=== PATIENT | female | born 1945 | race African-American/Black ===

== ENCOUNTER 2017-08-19 14:03 | Emergency (ER) | payer OTHER, MEDICAID ==
[2017-08-19 14:56] LABS: ADD MAN DIFF? NO
[2017-08-19 15:00] LABS: BASO # 0.1 x10^3/uL (0.0-0.2); BASO % 1 % (0-3); EOS # 0.1 x10^3/uL (0.0-0.7); EOS % 2 % (0-3); HEMATOCRIT 32.8 % (36.0-47.0); HEMOGLOBIN 11.2 g/dL (12.0-15.5); LYMPH # 3.9 x10^3/uL (1.0-4.8); LYMPH % 49 % (24-48); MEAN CORPUSCULAR HEMOGLOBIN 33 pg (25-35); MEAN CORPUSCULAR HGB CONC 34 g/dL (31-37); MEAN CORPUSCULAR VOLUME 96 fL (79-100); MONO % 12 % (0-9); NEUT # 2.8 x10^3uL (1.8-7.7); NEUT % 36 % (31-73); PLATELET COUNT 228 x10^3/uL (140-400); RED BLOOD COUNT 3.41 x10^6/uL (3.50-5.40); RED CELL DISTRIBUTION WIDTH 14.1 % (11.5-14.5); WHITE BLOOD COUNT 7.9 x10^3/uL (4.0-11.0)
[2017-08-19] MEDS: ACETAMINOPHEN/CODEINE 300/30MG TABLET. PO (15:10)
[2017-08-19 15:14] LABS: ANION GAP 7 (6-14); BLOOD UREA NITROGEN 21 mg/dL (7-20); BUN/CREATININE RATIO 16 (6-20); CALCIUM 9.4 mg/dL (8.5-10.1); CARBON DIOXIDE 27 mmol/L (21-32); CHLORIDE 105 mmol/L (98-107); CREATININE 1.3 mg/dL (0.6-1.0); GFR 48.6; GLUCOSE 117 mg/dL (70-99); POTASSIUM 4.1 mmol/L (3.5-5.1); SODIUM 139 mmol/L (136-145)
[2017-08-19 15:20] LABS: ALBUMIN 3.4 g/dL (3.4-5.0); ALK PHOS 51 U/L (46-116); ALT (SGPT) 25 U/L (14-59); AST (SGOT) 20 U/L (15-37); TOTAL BILIRUBIN 0.3 mg/dL (0.2-1.0); TOTAL PROTEIN 6.7 g/dL (6.4-8.2)
[2017-08-19 15:24] LABS: TROPONINI < 0.017 ng/mL (0.000-0.055)
[2017-08-19] MEDS: LABETALOL 20 MG/4 ML DISP.SYRIN. IVP (15:38)
== END 2017-08-19 17:29 | disposition home or self-care (01) ==
LOC: ER 17:29
DX: R07.81 Pleurodynia (principal); I10 Essential (primary) hypertension; E11.9 Type 2 diabetes mellitus without complications
CPT/HCPCS: 36415; 71100; 80053; 84484; 85025; 93005; 96374; 99285-25; J3490

== ENCOUNTER 2021-07-08 15:22 | Emergency (ER) | payer MEDICAID, OTHER ==
[~2021-07-08] VITALS: Ht 160 cm; Wt 69.0 kg
[~2021-07-08 15:22] MED LIST: ACET-58 PO; ACET-704 PO; ASPI-482 PO; CALC600T PO; DASA100T PO; FERR325T14 PO; GLIP5TAB10 PO; HYDR-2145 PO; INSU100I17 SQ; INSU100V31 SQ; INSU100V8 SQ; LOSA100T14 PO; LOVA20TA2 PO; METF10007 PO; MULT-658 PO; PSYL575P4 PO; VERA180C2 PO; vit b complex PO
--- NOTE | 2021-07-08 15:57 | PHYS DOC ---
Past Medical History Past Medical History: Anemia, Cancer, Diabetes-Type II, Hypertension Additional Past Medical Histor: CML, leagally blind bilat Past Surgical History: Hysterectomy, Other Additional Past Surgical Histo: cataracts bilat Smoking Status: Never Smoker Alcohol Use: None Drug Use: None General Adult EDM: Chief Complaint: HIP PAIN HPI: HPI: Patient is a 76-year-old female who presents today with left hip left lower back pain. Patient states that the pain has been ongoing for the last 2 weeks but it continues to worsen, she says it is worse when she is ambulating but she is ambulate able to ambulate with a cane which is not new for her. Patient does have a past medical history of hypertension, CML for which she is seen at the [facility] oncology department for, and legally blind. Patient denies falling or any other trauma to that area, she has not been told that she has arthritis in her back or hip at any point in time. Review of Systems: Review of Systems: Constitutional: Denies fever or chills. [] Eyes: Denies change in visual acuity. [] HENT: Denies nasal congestion or sore throat. [] Respiratory: Denies cough or shortness of breath. [] Cardiovascular: Denies chest pain or edema. [] GI: Denies abdominal pain, nausea, vomiting, bloody stools or diarrhea. [] : Denies dysuria. [] Musculoskeletal: Left hip back pain Integument: Denies rash. [] Neurologic: Denies headache, focal weakness or sensory changes. [] Endocrine: Denies polyuria or polydipsia. [] Lymphatic: Denies swollen glands. [] Psychiatric: Denies depression or anxiety. [] Heart Score: C/O Chest Pain: No Risk Factors: Risk Factors: DM, Current or recent (<one month) smoker, HTN, HLP, family history of CAD, obesity. Risk Scores: Score 0 - 3: 2.5% MACE over next 6 weeks - Discharge Home Score 4 - 6: 20.3% MACE over next 6 weeks - Admit for Clinical Observation Score 7 - 10: 72.7% MACE over next 6 weeks - Early Invasive Strategies Allergies: Allergies: Allergies Coded Allergies Type Severity Reaction Last Updated Verified No Known Drug Allergies 08/03/13 No Physical Exam: PE: Constitutional: Well developed, well nourished, no acute distress, non-toxic appearance. [] HENT: Normocephalic, atraumatic, bilateral external ears normal, oropharynx moist, no oral exudates, nose normal. [] Eyes: PERRLA, EOMI, conjunctiva normal, no discharge. [] Neck: Normal range of motion, no tenderness, supple, no stridor. [] Cardiovascular:Heart rate regular rhythm, no murmur [] Lungs & Thorax: Bilateral breath sounds clear to auscultation [] Abdomen: Bowel sounds normal, soft, no tenderness, no masses, no pulsatile masses. [] Skin: Warm, dry, no erythema, no rash. [] Back: Tenderness located over the SI joint and the left side of her back, no lacerations, abrasions, contusions, or ecchymosis noted Extremities: Left leg normal range of motion with pain with movement, no deformity noted, peripheral pulses are 1+. Neurologic: Alert and oriented X 3, normal motor function, normal sensory function, no focal deficits noted. [] Psychologic: Affect normal, judgement normal, mood normal. [] Current Patient Data: Labs: Laboratory Tests Test 07/08/21 16:25 07/08/21 16:32 Urine Collection Type Void Urine Color (Auto) Light yellow Urine Turbidity Hazy Urine pH (Auto) 6.0 Urine Specific Addison 1.016 Urine Protein (Auto) Negative mg/dL Urine Glucose (Auto)(UA) 500 mg/dL Urine Ketones (Auto) Negative mg/dL Urine Blood (Auto) Trace Urine Nitrite Negative Urine Bilirubin (Auto) Negative Urine Urobilinogen (Auto) Normal mg/dL Urine Leukocyte Esterase (Auto) Small Urine RBC 1-2 /HPF Urine WBC 1-4 /HPF Urine Squamous Epithelial Cells Few /LPF Urine Amorphous Sediment Present /HPF Urine Bacteria Moderate /HPF White Blood Count 7.4 x10^3/uL Red Blood Count 3.66 x10^6/uL Hemoglobin 11.6 g/dL Hematocrit 34.2 % Mean Corpuscular Volume 94 fL Mean Corpuscular Hemoglobin 32 pg Mean Corpuscular Hemoglobin Concent 34 g/dL Red Cell Distribution Width 13.6 % Platelet Count 205 x10^3/uL Neutrophils (%) (Auto) 58 % Lymphocytes (%) (Auto) 22 % Monocytes (%) (Auto) 16 % Eosinophils (%) (Auto) 3 % Basophils (%) (Auto) 1 % Neutrophils # (Auto) 4.3 x10^3/uL Lymphocytes # (Auto) 1.6 x10^3/uL Monocytes # (Auto) 1.2 x10^3/uL Eosinophils # (Auto) 0.2 x10^3/uL Basophils # (Auto) 0.1 x10^3/uL Sodium Level 135 mmol/L Potassium Level 3.9 mmol/L Chloride Level 100 mmol/L Carbon Dioxide Level 24 mmol/L Anion Gap 11 Blood Urea Nitrogen 22 mg/dL Creatinine 1.1 mg/dL Estimated GFR (Cockcroft-Gault) 58.3 Glucose Level 150 mg/dL Calcium Level 9.4 mg/dL Vital Signs: Vital Signs Date Time Temp Pulse Resp B/P (MAP) Pulse Ox O2 Delivery O2 Flow Rate FiO2 07/08/21 15:25 98.2 85 18 189/85 (119) 100 Room Air 98.2 EKG: EKG: [] Radiology/Procedures: Radiology/Procedures: [REASON: back hip pain PROCEDURE: CT LUMBAR SPINE WO CONTRAST EXAMINATION: CT PELVIS WO, CT LUMBAR SPINE WO, 07/08/2021 3:51 PM CLINICAL INDICATION: Back and hip pain COMPARISON: None TECHNIQUE: Helical CT imaging performed of the lumbar spine and CT of the pelvis without the use of intravenous contrast. Sagittal and coronal reformats were obtained. One or more of the following individualized dose reduction techniques were utilized for this examination: 1. Automated exposure control 2. Adjustment of the mA and/or kV according to patient size 3. Use of iterative reconstruction technique. FINDINGS: CT lumbar spine: There are 5 nonrib-bearing lumbar vertebral bodies. No acute fracture. There is 8 mm anterolisthesis of L4 on L5. 3 mm anterolisthesis of L5 on S1. There is moderate disc space narrowing at L5-S1. Mild disc space narrowing at L4-L5. The remaining disc spaces are maintained. At L4-L5: Anterolisthesis uncovers a large broad-based disc bulge. This combined with severe facet arthrosis and ligamentum flavum thickening results in severe canal narrowing. There is moderate to severe bilateral foraminal narrowing at L4-L5. At L5-S1, there is a broad-based disc bulge and posterior endplate pr oliferation. This results in moderate right greater than left foraminal narrowing. No significant canal narrowing. No significant canal or foraminal narrowing at the remaining levels. There is a nodular and linear opacity in the posterior right lower lobe, likely atelectasis (image 4, series 2). Mild calcified aortoiliac atherosclerosis. Small hiatal hernia. CT pelvis: There is no acute fracture. Alignment is normal. There is mild bilateral hip joint space narrowing. Small corticated ossicle at the tip of the right greater trochanter, likely sequela of old injury. Muscles and subcutaneous soft tissue is normal in appearance. Lower lumbar degenerative disc disease, as above. There is a small ventral hernia or mild diastases recti. Mild calcified aortoiliac atherosclerosis. IMPRESSION: 1. No acute osseous abnormality in the lumbar spine or pelvis. 2. Grade 1 spondylolisthesis at L4-L5 uncovering a disc bulge and resulting in severe canal and moderate to severe bilateral foraminal narrowing. 3. Moderate right greater than left foraminal narrowing at L5-S1. 4. Mild degenerative joint disease of the hips. Electronically signed by: Bing Rico MD (07/08/2021 4:28 PM) [id number] ] Course & Med Decision Making: Course & Med Decision Making Pertinent Labs and Imaging studies reviewed. (See chart for details) 1750 I reviewed radiological and laboratory results with patient, I did inform her there was no acute findings on her CT scan but it did show that she had some bulging disc at L4 S1 and some narrowing of the spinal cord area, she will need to follow-up with her primary care physician to have further evaluation and management of her back pain including an MRI with a possible consultation to neurosurgery or pain management physician for an epidural steroid injection. Patient will be given a prescription for Ultram for pain, patient can also take [id number] Tylenol as needed as well. Patient is agreeable with the plan of care and will follow up with her primary care physician KANA. Viraj Disclaimer: Viraj Disclaimer: This electronic medical record was generated, in whole or in part, using a voice recognition dictation system. Departure Departure Impression: Primary Impression: Back pain Qualified Codes: M54.50 - Low back pain, unspecified Additional Impressions: Left hip pain Urinary tract infection Qualified Codes: N30.00 - Acute cystitis without hematuria Disposition: HOME / SELF CARE / HOMELESS Condition: STABLE Referrals: JASWANT CARR MD (PCP) Patient Instructions: Back Pain, Adult, Urinary Tract Infection Additional Instructions: You will need to follow-up with your primary care physician for further evaluation and management of your low back pain, he will need to order an MRI fo r further evaluation of your spinal cord area, may suggest a referral to neurosurgery or a pain management physician for epidural steroid injections. Ultram take 1 tablet every 6-8 hours as needed for severe pain, use with caution may cause drowsiness and constipation You may continue to take Tylenol [id number] as labeled directed for pain as well [id number] Lidoderm patches as labeled directed for localized pain relief Macrobid take 1 tablet twice daily for 7 full days for urinary tract infection Return to the emergency department should you develop a fever, inability to use your left leg, numbness or tingling in your left leg, or you have loss of bowel or bladder control Scripts Nitrofurantoin Monohyd/M-Cryst (MACROBID 100 MG CAPSULE) 100 Mg Capsule 1 CAP PO BID for 7 Days, #14 CAP 0 Refills Prov: YUKI GUTIERREZ APRN 07/08/21 Tramadol Hcl (ULTRAM) 50 Mg Tablet 1 TAB PO PRN Q6HRS PRN for pain MDD 4 Tablet(s) for 7 Days, #28 TAB 0 Refills Prov: YUKI GUTIERREZ APRN 07/08/21 YUKI GUTIERREZ APRN Jul 08, 2021 15:57
--- NOTE | 2021-07-08 16:30 | RAD ---
EXAMINATION: CT PELVIS WO, CT LUMBAR SPINE WO, 07/08/2021 3:51 PM CLINICAL INDICATION: Back and hip pain COMPARISON: None TECHNIQUE: Helical CT imaging performed of the lumbar spine and CT of the pelvis without the use of i ntravenous contrast. Sagittal and coronal reformats were obtained. One or more of the following individualized dose reduction techniques were utilized for this examinat ion: 1. Automated exposure control 2. Adjustment of the mA and/or kV according to patient size 3. Use of iterative reconstruction technique. FINDINGS: CT lumbar spine: There are 5 nonrib-bearing lumbar vertebral bodies. No acute fracture. There is 8 mm anterolisthesis of L4 on L5. 3 mm anterolisthesis of L5 on S1. There is moderate disc space narrowin g at L5-S1. Mild disc space narrowing at L4-L5. The remaining disc spaces are maintained. At L4-L5: Anterolisthesis uncovers a large broad-based disc bulge. This combined with severe facet ar throsis and ligamentum flavum thickening results in severe canal narrowing. There is moderate to tamanna re bilateral foraminal narrowing at L4-L5. At L5-S1, there is a broad-based disc bulge and posterior endplate proliferation. This results in mod erate right greater than left foraminal narrowing. No significant canal narrowing. No significant canal or foraminal narrowing at the remaining levels. There is a nodular and linear opacity in the posterior right lower lobe, likely atelectasis (image 4, series 2). Mild calcified aortoiliac atherosclerosis. Small hiatal hernia. CT pelvis: There is no acute fracture. Alignment is normal. There is mild bilateral hip joint space n arrowing. Small corticated ossicle at the tip of the right greater trochanter, likely sequela of old injury. Muscles and subcutaneous soft tissue is normal in appearance. Lower lumbar degenerative disc disease, as above. There is a small ventral hernia or mild diastases recti. Mild calcified aortoiliac atherosclerosis. IMPRESSION: 1. No acute osseous abnormality in the lumbar spine or pelvis. 2. Grade 1 spondylolisthesis at L4-L5 uncovering a disc bulge and resulting in severe canal and moder ate to severe bilateral foraminal narrowing. 3. Moderate right greater than left foraminal narrowing at L5-S1. 4. Mild degenerative joint disease of the hips. Electronically signed by: Bing Rico MD (07/08/2021 4:28 PM) [id number]
[2021-07-08 16:42] LABS: BASO # 0.1 x10^3/uL (0.0-0.2); BASO % 1 % (0-3); EOS # 0.2 x10^3/uL (0.0-0.7); EOS % 3 % (0-3); HEMATOCRIT 34.2 % (36.0-47.0); HEMOGLOBIN 11.6 g/dL (12.0-15.5); LYMPH # 1.6 x10^3/uL (1.0-4.8); LYMPH % 22 % (24-48); MEAN CORPUSCULAR HEMOGLOBIN 32 pg (25-35); MEAN CORPUSCULAR HGB CONC 34 g/dL (31-37); MEAN CORPUSCULAR VOLUME 94 fL (79-100); MONO # 1.2 x10^3/uL (0.0-1.1); MONO % 16 % (0-9); NEUT # 4.3 x10^3/uL (1.8-7.7); NEUT % 58 % (31-73); PLATELET COUNT 205 x10^3/uL (140-400); RED BLOOD COUNT 3.66 x10^6/uL (3.50-5.40); RED CELL DISTRIBUTION WIDTH 13.6 % (11.5-14.5); WHITE BLOOD COUNT 7.4 x10^3/uL (4.0-11.0)
[2021-07-08 17:06] LABS: AMORPHOUS SEDIMENT,UR PRESENT /HPF; BACTERIA,URINE MODERATE /HPF (0-FEW)
[2021-07-08 17:16] LABS: CALCIUM 9.4 mg/dL (8.5-10.1); CREATININE 1.1 mg/dL (0.6-1.0); GFR 58.3
[2021-07-08 17:34] LABS: POTASSIUM 3.9 mmol/L (3.5-5.1)
[2021-07-08] MEDS ORDERED: TRAM-48 PO (17:58)
[2021-07-08] MEDS ORDERED: NITR100C62 PO (17:58)
[2021-07-08 18:11] VITALS: BP 184/80
== END 2021-07-08 18:25 | disposition home or self-care (01) ==
LOC: ER 15:22
DX: N30.00 Acute cystitis without hematuria (principal); M54.50 Low back pain, unspecified; M25.552 Pain in left hip; I10 Essential (primary) hypertension; E11.9 Type 2 diabetes mellitus without complications; M43.16 Spondylolisthesis, lumbar region; M16.0 Bilateral primary osteoarthritis of hip; Z90.710 Acquired absence of both cervix and uterus
CPT/HCPCS: 36415; 80048; 81001; 85025; 87086; 99284-25